=== PATIENT | male | born 1945 | race Caucasian/White ===

== ENCOUNTER 2016-11-06 08:56 | Outpatient (CLI) ==
--- NOTE | 2016-11-06 10:06 | CT ---
EXAM: CT ABDOMEN AND PELVIS HISTORY: Left lower quadrant abdominal pain, umbilical drainage TECHNIQUE: CT abdomen and pelvis with intravenous contrast. Images were reconstructed using 5 mm se ction thickness. Reformations were prepared. 75 mL Omnipaque. COMPARISON: None FINDINGS: Mild fatty infiltration of the liver. No focal hepatic or splenic lesions. Gallbladder is absent. Pancreas and adrenal glands appear normal. There appears to be a 0.62 cm calculus within the left kidney. No hydronephrosis or evidence of ureteral obstruction. Mild to moderate atherosclerotic di sease. Stomach is unremarkable. Normal appendix. Normal bowel gas pattern. Mild sigmoid diverticulosis. Prostate appears mildly enlarged and slightly lobulated. Within the left aspect of the prostate, th ere is poorly delineated slightly lobulated oval shaped mass or collection suggested measuring 2.5 x 2.7 x 2.7 cm. Urinary bladder was unremarkable. No ascites. There is a small fatty left inguinal hernia. Mild to moderate degenerative changes of the lower spi ne and sacroiliac joints. Lung bases are free of infiltrate. No pneumoperitoneum. IMPRESSION: 1. Unexpected finding. Prostate appears mildly enlarged and slightly lobulated. Within the left a spect of the prostate, there is poorly delineated slightly lobulated oval shaped mass or collection suggested measuring 2.5 x 2.7 x 2.7 cm. Considerations could include prostate neoplasia or prostati tis (complex fluid collection/infection). Further workup is recommended. Additional imaging could i nclude prostate ultrasound or MRI. 2. Small fatty left inguinal hernia. 3. Mild fatty infiltration of the liver. 4. Left nephrolithiasis. 5. Mild moderate atherosclerotic disease. 6. Mild sigmoid diverticulosis.
== END 2016-11-06 08:57 | disposition home or self-care (01) ==
LOC: RAD 08:56
PROVIDERS: ATTEND Family Medicine
DX: R10.32 Left lower quadrant pain (principal)

== ENCOUNTER 2017-07-06 09:17 | Outpatient (CLI) ==
--- NOTE | 2017-07-06 10:13 | US ---
EXAM: Renal ultrasound HISTORY: Renal calculus follow-up with history of left renal stone with prior lithotripsy COMPARISON: CT abdomen pelvis 11/06/2016 TECHNIQUE: Sonographic evaluation of the kidneys was performed with limited Doppler evaluation. FINDINGS: The right kidney measures 11.3 x 5.1 x 5.1 cm with renal cortical thickness of 2.0 cm. Th ere is normal echogenicity and color Doppler flow. No stone or hydronephrosis is identified. The left kidney measures 11.1 x 5.4 x 4.3 cm with renal cortical thickness of 1.7 cm. There is geena l echogenicity and color Doppler flow. No stone or hydronephrosis is identified. Limited evaluation of the urinary bladder is unremarkable. IMPRESSION: There is no sonographic abnormality or visualized stone.
--- NOTE | 2017-07-06 10:14 | DI ---
EXAM: KUB HISTORY: Evaluate for renal calculus. COMPARISON: CT abdomen pelvis 11/06/2016 FINDINGS: There is no abnormal calcification identified. No renal stone is present. There are calci fications in the pelvis. There is mild degenerative disease in the lumbar spine and hips. There is no dilated loops of bowel. There is scattered stool in the abdomen pelvis. IMPRESSION: There is no visualized renal stone or obstructive bowel gas pattern.
== END 2017-07-06 09:18 | disposition home or self-care (01) ==
LOC: RAD 09:17
PROVIDERS: ATTEND Urology
DX: N20.0 Calculus of kidney (principal)
CPT/HCPCS: 76770

== ENCOUNTER 2017-11-26 13:06 | Outpatient (CLI) ==
--- NOTE | 2017-11-26 13:52 | CT ---
EXAM: CT abdomen pelvis without contrast HISTORY: Kidney stone COMPARISON: 11/13/2016 TECHNIQUE: CT abdomen pelvis performed without intravenous contrast. Coronal and sagittal reformatt ed images obtained. FINDINGS: Mild subsegmental atelectasis lung bases. No free air. No acute abnormalities of the bon es. Degenerative change in the spine. Heart normal in size. Evaluation organ parenchyma limited wi thout contrast. Liver unremarkable. Patient status post cholecystectomy. Spleen unremarkable. Adr enals unremarkable. Aorta normal in caliber. Moderate atherosclerosis that is greater peripherally. Small bilateral fat containing inguinal hernias. No lymphadenopathy or ascites. Stomach appears no rmal. No dilated loops small bowel. Appendix appears normal. Mild to moderate fecal retention. Co lonic diverticulosis. No hydronephrosis or nephrolithiasis. No calculi visualized in normal course of the ureters. Bladder unremarkable. Prostate moderately enlarged IMPRESSION: 1. No hydronephrosis or nephrolithiasis. 2. No acute abnormality identified in the abdomen pelvis. 3. Enlarged prostate. 4. Atherosclerosis. 5. Colonic diverticulosis. 6. Mild to moderate fecal retention.
== END 2017-11-26 13:07 ==
LOC: RAD 13:06
PROVIDERS: ATTEND Surgery
DX: N20.0 Calculus of kidney (principal)

== ENCOUNTER 2018-09-15 13:39 | Outpatient (CLI) ==
--- NOTE | 2018-09-15 16:15 | CT ---
EXAM: CT abdomen pelvis without contrast HISTORY: Flank pain COMPARISON: 11/26/2017 TECHNIQUE: CT abdomen pelvis performed without intravenous contrast. Coronal and sagittal reformatt ed images obtained. FINDINGS: Lung bases clear. No free air. No acute abnormalities of the bones. Degenerative change in the spine. Heart normal in size. Evaluation organ parenchyma limited without contrast. Liver u nremarkable. Patient status post cholecystectomy. Calcifications in the pancreas suggesting sequela of chronic pancreatitis. Spleen unremarkable. Adrenals unremarkable. No hydronephrosis or nephrol ithiasis. No calculi visualized in normal course of the ureters. Bladder unremarkable. Prostate mi ldly enlarged. Small bilateral fat containing inguinal hernias. Aorta normal in caliber. Moderate atherosclerosis. No lymphadenopathy or ascites. Stomach unremarkable. No dilated loops small bowel . Appendix appears normal. Colonic diverticulosis. Mild fecal retention. No inflammatory strandin g identified in the abdomen or pelvis. IMPRESSION: 1. No hydronephrosis or nephrolithiasis. 2. No acute abnormality identified in the abdomen or pelvis. 3. Colonic diverticulosis. 4. Enlarged prostate. 5. Atherosclerosis. 6. Mild fecal retention.
== END 2018-09-15 13:40 | disposition home or self-care (01) ==
LOC: RAD 13:39
PROVIDERS: ATTEND Family Medicine
DX: R10.9 Unspecified abdominal pain (principal)